=== PATIENT | male | born 1995 | race African-American/Black ===

== ENCOUNTER 2020-03-18 10:20 | Emergency (ER) | payer OTHER ==
[~2020-03-18] VITALS: Ht 167.6 cm; Wt 80.9 kg
[2020-03-18 10:22] VITALS: BP 124/67
[2020-03-18] MEDS ORDERED: PRAM56OI TP (11:32)
== END 2020-03-18 11:42 | disposition home or self-care (01) ==
LOC: M ED 10:20
DX: K64.8 Other hemorrhoids (principal)